=== PATIENT | male | born 1960 | race Caucasian/White ===

== ENCOUNTER 2016-06-19 22:38 | Inpatient (IN) | payer BC ==
[~2016-06-19] VITALS: Ht 167.6 cm; Wt 87.0 kg
[~2016-06-19 22:38] MED LIST: ONDA4TAB7 SL
[2016-06-19] MEDS ORDERED: ONDANSETRON INJ 2 MG/ML 2 ML VIAL IV STA (22:53)
[2016-06-19] MEDS ORDERED: MoRPHine SULFATE 4 MG/ML 1 ML CARP\\VIAL IV STA (22:53)
[2016-06-19] MEDS ORDERED: SODIUM CHLORIDE 0.9% 1000ML 1,000 ML IV STA (22:53)
[2016-06-19 23:18] LABS: BASO % 0.5 %; BASO ABS # 0.05 K/uL (0-0.2); COMPLETE YES; HEMATOCRIT 43.4 % (42-52); IG% 0.2 %; LYMPH % 16.5 %; MEAN CELL VOLUME 85.6 fL (80-100); MEAN CORPUSCULAR HEMOGLOBIN 30.4 pg (25-34); MEAN CORPUSCULAR HGB CONC 35.5 g/dl (32-36); MEAN PLATELET VOLUME 10.3 fL (7.4-10.4); MONO % 11.3 %; NEUT % 70.5 %; PLATELET COUNT 157 K/uL (130-400); RED BLOOD COUNT 5.07 M/uL (4.7-6.1); WHITE BLOOD COUNT 9.68 K/uL (4.8-10.8)
[2016-06-19 23:39] LABS: ALT/SGPT 34 U/L (12-78); AST/SGOT 10 U/L (15-37); BLOOD UREA NITROGEN 22 mg/dl (7-18); BUN/CREATININE RATIO 18.3 (10-20); CALCIUM 8.3 mg/dl (8.5-10.1); CARBON DIOXIDE 25 mmol/L (21-32); CHLORIDE 104 mmol/L (98-107); GLUCOSE 111 mg/dl (70-99); POTASSIUM 3.6 mmol/L (3.5-5.1); SODIUM 144 mmol/L (136-145)
[2016-06-19 23:44] LABS: ALKALINE PHOSPHATASE 76 U/L (45-117)
[2016-06-20] VITALS (10 sets, daily range): BP systolic 106–143; BP diastolic 58–85; PULSE 77–100; TEMP 36.6–37.1; O2SAT 93–95; Ht 167.6 cm; Wt 87.0 kg
[2016-06-20] MEDS ORDERED: CEFOXITIN SOD 2 GM VIAL IV STA (00:29)
[2016-06-20] MEDS ORDERED: HYDROmorphone INJ 1 MG/ML SYR IV STA (00:33)
[2016-06-20] MEDS ORDERED: HYDROmorphone INJ 0.5 MG/0.5 ML SYR IV PRN (00:45)
[2016-06-20] MEDS ORDERED: ONDANSETRON INJ 2 MG/ML 2 ML VIAL IV PRN ×2 (00:45→11:15)
[2016-06-20] MEDS ORDERED: HYDROmorphone INJ 1 MG/ML SYR IV PRN ×2 (00:45→11:15)
[2016-06-20] MEDS ORDERED: PROMETHAZINE HCL INJ 25 MG in SODIUM CHLORIDE 0.9% 50ML 50 ML IV PRN (00:45)
--- NOTE | 2016-06-20 01:01 | History and Physical ---
History & Physical Date & Time of Service: Jun 20, 2016 at 00:56 Chief Complaint: Severe Abdominal Pain, Upper Abd, Fever Primary Care Physician: Chepe Luna M.D. History of Present Illness Source: patient pt adm from ER with 3-4 days of persistent abd pain, nausea. Has had episodes like this before- u/s shows thickened gb consistent with acute cholecystitis Past Medical/Surgical History Medical Problems: (1) Kidney stones Status: Resolved Social History Smoking Status: Never Smoker Immunizations History of Tetanus Vaccine?: Unknown History of Pneumococcal: Unknown History of Hepatitis B Vaccine: Unknown Multi-Drug Resistant Organisms History of MDRO: No Allergies Coded Allergies: Meperidine (Unverified Adverse Reaction, Intermediate, vomit, 06/19/16) Home Medications No Active Prescriptions or Reported Meds Review of Systems Constitutional: No chills, No fever ENT: No hearing loss Respiratory: No cough, No shortness of breath, No sputum Cardiovascular: No chest pain Abdomen: + nausea, + pain Musculoskeletal: No joint pain Genitourinary - Male: No dysuria (h/o kidney stones) Neurologic: No weakness Endocrine: No fatigue Integumentary: No rash Physical Exam Vital Signs Date Time Temp Pulse Resp B/P Pulse Ox O2 Delivery O2 Flow Rate FiO2 06/20/16 00:06 94 16 162/95 96 Room Air 06/19/16 23:07 95 Room Air 06/19/16 23:06 95 Room Air 06/19/16 23:04 95 06/19/16 22:40 36.7 90 22 165/89 100 Room Air General Appearance: no apparent distress Eyes: sclerae normal Neck: supple Respiratory/Chest: no respiratory distress Cardiovascular: regular rate, rhythm Abdomen/GI: normal bowel sounds, soft, + tenderness (RUQ tenderness) Extremities/Musculoskelatal: normal inspection, no pedal edema Neurologic/Psych: alert Skin: no rash Diagnostics Laboratory Results Results Past 24 Hours Test 06/19/16 23:01 Range/Units White Blood Count 9.68 4.8-10.8 K/uL Red Blood Count 5.07 4.7-6.1 M/uL Hemoglobin 15.4 14.0-18.0 g/dL Hematocrit 43.4 42-52 % Mean Corpuscular Volume 85.6 80-100 fL Mean Corpuscular Hemoglobin 30.4 25-34 pg Mean Corpuscular Hemoglobin Concent 35.5 32-36 g/dl Platelet Count 157 130-400 K/uL Mean Platelet Volume 10.3 7.4-10.4 fL Neutrophils (%) (Auto) 70.5 % Lymphocytes (%) (Auto) 16.5 % Monocytes (%) (Auto) 11.3 % Eosinophils (%) (Auto) 1.0 % Basophils (%) (Auto) 0.5 % Neutrophils # (Auto) 6.82 1.4-6.5 K/uL Lymphocytes # (Auto) 1.60 1.2-3.4 K/uL Monocytes # (Auto) 1.09 0.11-0.59 K/uL Eosinophils # (Auto) 0.10 0-0.5 K/uL Basophils # (Auto) 0.05 0-0.2 K/uL RDW Standard Deviation 43.1 36.4-46.3 fL RDW Coefficient of Variation 14.0 11.5-14.5 % Immature Granulocyte % (Auto) 0.2 % Immature Granulocyte # (Auto) 0.02 0.00-0.02 K/uL Sodium Level 144 136-145 mmol/L Potassium Level 3.6 3.5-5.1 mmol/L Chloride Level 104 98-107 mmol/L Carbon Dioxide Level 25 21-32 mmol/L Anion Gap 15.0 3-11 mmol/L Blood Urea Nitrogen 22 7-18 mg/dl Creatinine 1.20 0.60-1.40 mg/dl Est Creatinine Clear Calc Drug Dose 71.9 ml/min Estimated GFR () 78.4 Estimated GFR (Non- 67.7 BUN/Creatinine Ratio 18.3 10-20 Random Glucose 111 70-99 mg/dl Calcium Level 8.3 8.5-10.1 mg/dl Total Bilirubin 0.7 0.2-1 mg/dl Direct Bilirubin 0.2 0-0.2 mg/dl Aspartate Amino Transf (AST/SGOT) 10 15-37 U/L Alanine Aminotransferase (ALT/SGPT) 34 12-78 U/L Alkaline Phosphatase 76 45-117 U/L Troponin I < 0.015 0-0.045 ng/ml Total Protein 7.0 6.4-8.2 gm/dl Albumin 3.7 3.4-5.0 gm/dl Lipase 141 73-393 U/L Impression Assessment and Plan pt adm with acute cholecystitis- for lap leslie in next 24-48 hrs VTE Prophylaxis VTE Risk Assessment Done? Y/N: Yes Risk Level: Moderate
--- NOTE | 2016-06-20 01:26 | EMERGENCY ROOM VISIT NOTE ---
History First contact with patient: 22:46 Chief Complaint: ABDOMINAL PAIN Stated Complaint: SEVERE ABDOMINAL PAIN, UPPER ABD, FEVER History of Present Illness The patient is a 56 year old male who presents to the Emergency Room with complaints of severe epigastric right upper quadrant pain for the past few hours that was worse after eating dinner which was chicken. Patient discussed pain as severe, 9 out of 10. Nothing makes it better or worse. Patient denies chest pain, dyspnea, cough, congestion, vomiting, diarrhea, back pain, radiating pain, leg pain or swelling. He has had normal bowel movements. Status post appendectomy. Patient states he is healthy and has no active medical problems. Review of Systems See HPI for pertinent positives & negatives. A total of 10 systems reviewed and were otherwise negative. Past Medical/Surgical History Medical Problems: (1) Acute cholecystitis (2) Kidney stones Hernia, appendectomy Social History Smoking Status: Never Smoker Smokeless Tobacco Use: No Drug Use: none Housing Status: lives with family Occupation Status: employed Current/Historical Medications No Active Prescriptions or Reported Meds Allergies Coded Allergies: Meperidine (Unverified Adverse Reaction, Intermediate, vomit, 06/19/16) Physical Exam Vital Signs Date Time Temp Pulse Resp B/P Pulse Ox O2 Delivery O2 Flow Rate FiO2 06/20/16 00:06 94 16 162/95 96 Room Air 06/19/16 23:07 95 Room Air 06/19/16 23:06 95 Room Air 06/19/16 23:04 95 06/19/16 22:40 36.7 90 22 165/89 100 Room Air Physical Exam VITALS: Vitals are noted on the nurse's note and reviewed by myself. Vital signs stable. GENERAL: Pleasant male in obvious pain, nondiaphoretic, well-developed well- nourished. SKIN: The skin was without rashes, erythema, edema, or bruising. There is no tenting of the skin. Capillary reflex less than 2 seconds. HEAD: Normocephalic atraumatic. EARS: External auditory canals clear, tympanic membranes pearly amaral without erythema or effusion bilaterally. EYES: Pupils equal round and reactive to light and accommodation. Conjunctivae without injection, sclerae without icterus. Extraocular movements intact. NOSE: Patent, turbinates without inflammation or discharge. MOUTH: Mucous membranes mildly dry. Pharynx without erythema or exudate. Uvula midline. Airway patent. Tongue does not deviate. NECK: Supple without nuchal rigidity. No lymphadenopathy. No thyromegaly. Cervical spine is nontender. No JVD. HEART: Regular rate and rhythm without murmurs gallops or rubs. LUNGS: Clear to auscultation bilaterally without wheezes, rales or rhonchi. No dullness to percussion. No retractions or accessory muscle use. ABDOMEN: Positive bowel sounds x 4. Normal tympanic percussion. Soft, tender to palpation upper abdomen, without masses or organomegaly. No CVA tenderness. No guarding or rebound tenderness. MUSCULOSKELETAL: No muscle atrophy, erythema, or edema noted. NEURO: Patient was alert and oriented to person place and time. Normal sensation to light and sharp touch. No focal neurological deficits. Medical Decision & Procedures Laboratory Results 06/19/16 23:01 Red Blood Count 5.07, Mean Corpuscular Volume 85.6, Mean Corpuscular Hemoglobin 30.4, Mean Corpuscular Hemoglobin Concent 35.5, Mean Platelet Volume 10.3, Neutrophils (%) (Auto) 70.5, Lymphocytes (%) (Auto) 16.5, Monocytes (%) (Auto) 11.3, Eosinophils (%) (Auto) 1.0, Basophils (%) (Auto) 0.5, Neutrophils # (Auto ) 6.82, Lymphocytes # (Auto) 1.60, Monocytes # (Auto) 1.09, Eosinophils # (Auto ) 0.10, Basophils # (Auto) 0.05 06/19/16 23:01 Test 06/19/16 23:01 White Blood Count 9.68 K/uL (4.8-10.8) Red Blood Count 5.07 M/uL (4.7-6.1) Hemoglobin 15.4 g/dL (14.0-18.0) Hematocrit 43.4 % (42-52) Mean Corpuscular Volume 85.6 fL (80-100) Mean Corpuscular Hemoglobin 30.4 pg (25-34) Mean Corpuscular Hemoglobin Concent 35.5 g/dl (32-36) Platelet Count 157 K/uL (130-400) Mean Platelet Volume 10.3 fL (7.4-10.4) Neutrophils (%) (Auto) 70.5 % Lymphocytes (%) (Auto) 16.5 % Monocytes (%) (Auto) 11.3 % Eosinophils (%) (Auto) 1.0 % Basophils (%) (Auto) 0.5 % Neutrophils # (Auto) 6.82 K/uL (1.4-6.5) Lymphocytes # (Auto) 1.60 K/uL (1.2-3.4) Monocytes # (Auto) 1.09 K/uL (0.11-0.59) Eosinophils # (Auto) 0.10 K/uL (0-0.5) Basophils # (Auto) 0.05 K/uL (0-0.2) RDW Standard Deviation 43.1 fL (36.4-46.3) RDW Coefficient of Variation 14.0 % (11.5-14.5) Immature Granulocyte % (Auto) 0.2 % Immature Granulocyte # (Auto) 0.02 K/uL (0.00-0.02) Anion Gap 15.0 mmol/L (3-11) Est Creatinine Clear Calc Drug Dose 71.9 ml/min Estimated GFR () 78.4 Estimated GFR (Non- 67.7 BUN/Creatinine Ratio 18.3 (10-20) Calcium Level 8.3 mg/dl (8.5-10.1) Total Bilirubin 0.7 mg/dl (0.2-1) Direct Bilirubin 0.2 mg/dl (0-0.2) Aspartate Amino Transf (AST/SGOT) 10 U/L (15-37) Alanine Aminotransferase (ALT/SGPT) 34 U/L (12-78) Alkaline Phosphatase 76 U/L (45-117) Troponin I < 0.015 ng/ml (0-0.045) Total Protein 7.0 gm/dl (6.4-8.2) Albumin 3.7 gm/dl (3.4-5.0) Lipase 141 U/L (73-393) Medications Administered Medications (Trade) Dose Ordered Sig/Stanislav Route Start Time Stop Time Status Last Admin Dose Admin Morphine Sulfate (MoRPHine SULFATE INJ) 4 mg NOW STAT IV 06/19/16 22:53 06/19/16 22:55 DC 06/19/16 23:12 4 MG Ondansetron HCl 4 mg 4 mg NOW STAT IV 06/19/16 22:53 06/19/16 22:55 DC 06/19/16 23:13 4 MG Sodium Chloride (Nss 1000ml) 1,000 ml @ 125 mls/hr Q8H STAT IV 06/19/16 22:53 06/20/16 06:52 06/19/16 23:13 125 MLS/HR Cefoxitin Sodium (Mefoxin IV) 2,000 mg NOW STAT IV 06/20/16 00:29 06/20/16 00:30 DC 06/20/16 00:41 2,000 MG Hydromorphone HCl (Dilaudid Inj) 1 mg NOW STAT IV 06/20/16 00:33 06/20/16 00:34 DC 06/20/16 00:41 1 MG ED Course Prior records/ancillary studies reviewed. Triage Nursing notes reviewed. The patient's history was concerning for abdominal pain. Differential diagnosis: Etiologies such as appendicitis, diverticulitis, PUD, biliary pathology, UTI, pancreatitis, obstruction, mesenteric ischemia, aortic pathology, infections, inflammatory bowel disease, renal colic, as well as others were entertained. Physical examination findings: As above. ER treatment provided: Morphine, Zofran, Dilaudid, Mefoxin, IV fluids On reassessment the patient felt better. Diagnostics interpreted by me: ECG: Normal sinus, normal intervals, T-wave inversions in the inferior leads. Impression normal sinus rhythm with T-wave inversion inferiorly interpreted by myself The labs revealed a negative troponin. No leukocytosis. Imaging studies: Chest x-ray with no acute consolidation, free air or pneumothorax per my interpretation. Radiology read the ultrasound and concerning for acute cholecystitis. Surgery was consulted. Consultation: A consultation was placed with the surgeon, Dr. Morse. The case was discussed and diagnostics were reviewed. The patient was evaluated in the ER for further treatment. Exam and history seem consistent with acute cholecystitis. Patient was placed nothing by mouth and given Mefoxin. His pain was managed. He will be evaluated by surgery. He was admitted to the surgical service. He had no white count. Normal LFTs. By the evaluation outlined above emergent etiologies such as appendicitis, diverticulitis, PUD, UTI, pancreatitis, obstruction, mesenteric ischemia, aortic pathology, infections, inflammatory bowel disease, renal colic, as well as others were deemed relatively unlikely. The pt informed about the findings as listed above. All questions were answered and pleased with the treatment Case reviewed with my attending Medical Decision As above Impression Primary Impression: Acute cholecystitis Departure Information Dispostion Being Evaluated By Surgeon Condition POOR Prescriptions No Active Prescriptions or Reported Meds Referrals Chepe Luna M.D. (PCP) Patient Instructions My [facility]
[2016-06-20] MEDS ORDERED: PROMETHAZINE HCL INJ 12.5 MG in SODIUM CHLORIDE 0.9% 50ML 50 ML IV PRN ×2 (02:00→11:15)
[2016-06-20] MEDS: KETOROLAC TROMETHAMINE 30 MG/ML VIAL IV. SCH ×4 (02:01→19:26)
[2016-06-20] MEDS: LACTATED RINGER'S 1000ML 1,000 ML IV SCH ×3 (02:01→21:27)
[2016-06-20] MEDS: CEFOXITIN IV 1,000 MG in DEXTROSE 5% 50ML 50 ML IV SCH ×3 (05:28→21:27)
--- NOTE | 2016-06-20 05:31 | Surgery Progress Note ---
Surgery Progress Note Date of Service Jun 20, 2016. Objective Vital Signs: Date Time Temp Pulse Resp B/P Pulse Ox O2 Delivery O2 Flow Rate FiO2 06/20/16 01:40 36.6 95 16 143/85 Room Air 06/20/16 01:40 Room Air 06/20/16 01:35 36.6 95 16 143/85 94 Room Air 06/20/16 01:15 94 16 138/89 93 Room Air 06/20/16 00:06 94 16 162/95 96 Room Air 06/19/16 23:07 95 Room Air 06/19/16 23:06 95 Room Air 06/19/16 23:04 95 06/19/16 22:40 36.7 90 22 165/89 100 Room Air Laboratory Results: Results Past 24 Hours Test 06/19/16 23:01 Range/Units White Blood Count 9.68 4.8-10.8 K/uL Red Blood Count 5.07 4.7-6.1 M/uL Hemoglobin 15.4 14.0-18.0 g/dL Hematocrit 43.4 42-52 % Mean Corpuscular Volume 85.6 80-100 fL Mean Corpuscular Hemoglobin 30.4 25-34 pg Mean Corpuscular Hemoglobin Concent 35.5 32-36 g/dl Platelet Count 157 130-400 K/uL Mean Platelet Volume 10.3 7.4-10.4 fL Neutrophils (%) (Auto) 70.5 % Lymphocytes (%) (Auto) 16.5 % Monocytes (%) (Auto) 11.3 % Eosinophils (%) (Auto) 1.0 % Basophils (%) (Auto) 0.5 % Neutrophils # (Auto) 6.82 1.4-6.5 K/uL Lymphocytes # (Auto) 1.60 1.2-3.4 K/uL Monocytes # (Auto) 1.09 0.11-0.59 K/uL Eosinophils # (Auto) 0.10 0-0.5 K/uL Basophils # (Auto) 0.05 0-0.2 K/uL RDW Standard Deviation 43.1 36.4-46.3 fL RDW Coefficient of Variation 14.0 11.5-14.5 % Immature Granulocyte % (Auto) 0.2 % Immature Granulocyte # (Auto) 0.02 0.00-0.02 K/uL Sodium Level 144 136-145 mmol/L Potassium Level 3.6 3.5-5.1 mmol/L Chloride Level 104 98-107 mmol/L Carbon Dioxide Level 25 21-32 mmol/L Anion Gap 15.0 3-11 mmol/L Blood Urea Nitrogen 22 7-18 mg/dl Creatinine 1.20 0.60-1.40 mg/dl Est Creatinine Clear Calc Drug Dose 71.9 ml/min Estimated GFR () 78.4 Estimated GFR (Non- 67.7 BUN/Creatinine Ratio 18.3 10-20 Random Glucose 111 70-99 mg/dl Calcium Level 8.3 8.5-10.1 mg/dl Total Bilirubin 0.7 0.2-1 mg/dl Direct Bilirubin 0.2 0-0.2 mg/dl Aspartate Amino Transf (AST/SGOT) 10 15-37 U/L Alanine Aminotransferase (ALT/SGPT) 34 12-78 U/L Alkaline Phosphatase 76 45-117 U/L Troponin I < 0.015 0-0.045 ng/ml Total Protein 7.0 6.4-8.2 gm/dl Albumin 3.7 3.4-5.0 gm/dl Lipase 141 73-393 U/L Assessment & Plan 06/20/16- pt is for OR later today- for lap leslie cont current atbx
--- NOTE | 2016-06-20 06:38 | DIAGNOSTIC IMAGING REPORT ---
BILIARY ULTRASOUND CLINICAL HISTORY: Right upper quadrant abdominal pain COMPARISON STUDY: CT scan dated 04/05/2014 FINDINGS: The liver is of increased echogenicity, suspicious for hepatic steatosis. There is no right-sided hydronephrosis. There is a 14 mm calculus within the gallbladder neck. There is gallbladder wall thickening (6 mm). There is echogenic bile within the gallbladder. The pancreas is not well visualized. The common bile duct measures 6 mm. IMPRESSION: 14 mm calculus within the gallbladder neck. Hyperdense bile within the gallbladder with gallbladder wall thickening/edema. Given history of right upper quadrant abdominal pain, the findings must be viewed as suspicious for acute cholecystitis. A nuclear medicine hepatobiliary study could be obtained in follow-up as deemed clinically necessary. Electronically signed by: Cuauhtemoc Saldaña M.D. 06/20/2016 6:37 AM Dictated Date/Time: 06/20/2016 6:34 AM
--- NOTE | 2016-06-20 06:47 | DIAGNOSTIC IMAGING REPORT ---
CHEST ONE VIEW PORTABLE CLINICAL HISTORY: Atypical chest and abdominal pain. Fever. COMPARISON STUDY: No previous studies for comparison. FINDINGS: The cardiac and mediastinal contours are normal. There is no evidence of focal pulmonary consolidation. There is no evidence of failure. No pleural effusions are visualized.[ No free air is visualized. IMPRESSION: No active disease in the chest. Electronically signed by: Cuauhtemoc Saldaña M.D. 06/20/2016 6:46 AM Dictated Date/Time: 06/20/2016 6:45 AM
[2016-06-20] MEDS ORDERED: BUPIVACAINE 0.5 % 5 MG/1 ML MPF 30ML VIAL ONE (07:19)
[2016-06-20] MEDS ORDERED: INFLUENZA ADMINISTRATION CHARGE ONE (08:30)
[2016-06-20] MEDS ORDERED: INFLUENZA VIRUS QUAD VACCINE 0.5 ML SYR IM. ONE (08:30)
[2016-06-20] MEDS ORDERED: NEOSTIGMINE METHYLSULFATE 5 MG/5 ML SYR ONE (09:45)
[2016-06-20] MEDS ORDERED: MIDAZOLAM HCL 1 MG/ML 2ML VIAL ONE (09:45)
[2016-06-20] MEDS ORDERED: LIDOCAINE HCL 2% 2 ML VIAL (20MG/ML) ONE (09:45)
[2016-06-20] MEDS ORDERED: FENTANYL CITRATE INJ 50 MCG/1 ML 2 ML VIAL ONE (09:45)
[2016-06-20] MEDS ORDERED: ROCURONIUM BROMIDE 10 MG/ML 5 ML VIAL ONE (09:45)
[2016-06-20] MEDS ORDERED: PROPOFOL IV EMULSION 10 MG/ML 20 ML VIAL IV ONE (09:45)
[2016-06-20] MEDS ORDERED: ONDANSETRON INJ 2 MG/ML 2 ML VIAL ONE (09:45)
[2016-06-20] MEDS ORDERED: DEXAMETHASONE SOD INJ 4 MG/ML VIAL ONE (09:45)
[2016-06-20] MEDS ORDERED: GLYCOPYRROLATE INJ 0.2 MG/ML VIAL ONE (09:45)
[2016-06-20] MEDS ORDERED: SUCCINYLCHOLINE CHLORIDE 20 MG/ML 10 ML VIAL IV ONE (10:39)
[2016-06-20] MEDS ORDERED: SUCCINYLCHOLINE 100MG/5ML SYR IV ONE (10:39)
[2016-06-20] MEDS ORDERED: BUPIVACAINE 0.5% INJ INJ ONE (11:11)
[2016-06-20] MEDS ORDERED: ATROPINE SULFATE 0.1 MG/ML 5ML SYR IV PRN (11:15)
[2016-06-20] MEDS ORDERED: FLUMAZENIL 0.1 MG/1 ML 10 ML VIAL IV PRN (11:15)
[2016-06-20] MEDS ORDERED: EpHEDrine SULFATE INJ 50 MG/ML AMP IV PRN (11:15)
[2016-06-20] MEDS ORDERED: LABETALOL HCL IV 5 MG/ML 20ML IV PRN (11:15)
[2016-06-20] MEDS ORDERED: NALOXONE HCL 0.4 MG/1 ML VIAL/CARP IV PRN (11:15)
--- NOTE | 2016-06-20 11:24 | [facility] Post Operative Brief Note ---
Immediate Operative Summary Operative Date Jun 20, 2016. Pre-Operative Diagnosis acute cholecystitis Post-Operative Diagnosis same Procedure(s) Performed Laparoscopic Cholecystectomy Surgeon Dr Morse Hand Ii Cutter Surgeon(s) Arpan Calabrese PA-C Estimated Blood Loss 30ml Findings severe necrotizing cholecystitis Specimens A. Gallbladder Drains # 15 [address] LARRY Anesthesia gen Complication(s) None Disposition Recovery Room / PACU
[2016-06-20] MEDS ORDERED: HYDROCODONE/ACETAMOPHEN 5/325MG TAB PO PRN ×2 (11:30)
--- NOTE | 2016-06-20 11:50 | OPERATIVE REPORT ---
DATE OF OPERATION: 06/20/2016 NAME OF OPERATION: Laparoscopic cholecystectomy. PREOPERATIVE DIAGNOSIS: Acute cholecystitis. POSTOPERATIVE DIAGNOSIS: Same with acute necrotizing cholecystitis. STAFF SURGEON: Dr. Morse. AREA SECRETARY: DOLORES Tenorio. PROCEDURE: The patient was brought into the operating room and placed on the operating table in a supine position. His abdomen was prepped and draped in usual fashion. Pneumatic stockings and orogastric tube were placed. Incision was made above the umbilicus, carrying dissection down using 0.5% plain Marcaine to anesthetize all incisions. A Veress needle was placed. Pneumoperitoneum produced. An 11 mm port placed at the umbilicus. Then under visualization, three 5 mm ports placed, 1 cephalad and 2 laterally. The patient's gallbladder was very distended and edematous. There were patches consistent with necrotizing cholecystitis. There were adhesions to the gallbladder, which were acute. These were taken down. The gallbladder was aspirated. There was sludge within the gallbladder. Dissection was carried out at the dc hepatis, identifying edematous tissue. The cystic duct and cystic artery were identified, clipped and transected. Then the gallbladder dissected away from the liver bed. There was severe edema in the posterior wall. After appropriate hemostasis and irrigation a #15 round Reagan-De La Torre drain was placed through the lateral 5 mm port site, placed into the subhepatic space, secured to the skin using 3-0 nylon suture. The gallbladder was then removed through the umbilical site, having to enlarge the incision secondary to the size of the gallbladder, it was very large. At this point, the fascia at the umbilicus closed using interrupted 0 PDS suture, and then the skin reapproximated using 4-0 nylon suture. The patient was transferred to recovery room in stable condition. I attest to the content of the Intraoperative Record and any orders documented therein. Any exceptio ns are noted below.
--- NOTE | 2016-06-20 12:05 | Anesthesiology Progress Note ---
Anesthesia Post Op Note Date & Time Jun 20, 2016 at 12:06 Vital Signs Pain Intensity: 0 Vital Signs Past 12 Hours Date Time Temp Pulse Resp B/P Pulse Ox O2 Delivery O2 Flow Rate FiO2 06/20/16 11:45 37.2 86 18 118/69 97 Mask 10 06/20/16 11:36 37.2 86 14 115/78 98 Mask 10 06/20/16 09:01 36.8 93 18 146/92 97 Room Air 06/20/16 07:51 36.8 92 16 124/83 94 Room Air 06/20/16 07:25 Room Air 06/20/16 01:40 36.6 95 16 143/85 Room Air 06/20/16 01:40 Room Air 06/20/16 01:35 36.6 95 16 143/85 94 Room Air 06/20/16 01:15 94 16 138/89 93 Room Air Notes Mental Status: alert / awake / arousable, participated in evaluation Pt Amnestic to Procedure: Yes Nausea / Vomiting: adequately controlled Pain: adequately controlled Airway Patency, RR, SpO2: stable & adequate BP & HR: stable & adequate Hydration State: stable & adequate Anesthetic Complications: no major complications apparent
--- NOTE | 2016-06-20 14:44 | Progress Note ---
Progress Note Date of Service Jun 20, 2016. Progress Note consult dictated [id number]
--- NOTE | 2016-06-20 15:41 | INTERNAL MEDICINE CONSULTATION ---
DATE OF ADMISSION: 06/20/2016 This is a level 2 inpatient consultation H\T\P, 25 minutes. PHYSICIAN REQUESTING CONSULTATION: Dr. Morse. REASON FOR CONSULTATION: Medicine management. HISTORY OF PRESENT ILLNESS: This 56-year-old white male with a history of kidney stone, was admitted to Dr. Morse's service because of acute cholecystitis. The patient had a laparoscopic cholecystectomy done this morning. He tolerated well. When I examined him, he was awake, alert and oriented. He is on oxygen 2 liters per minute. He reported to me he does not need oxygen at home. He is feeling good. Denied fever or chills. Denied cough, sputum, shortness of breath. Denied palpitations, lower extremity swelling. Denied chest pain. Denied nausea, vomiting, abdominal pain, diarrhea, or constipation. Denied dysuria, urgency and frequencies. Denied facial droop, slurry speeches or local weakness. ALLERGIES: MEPERIDINE. PAST SURGICAL HISTORY: Include appendectomy. SOCIAL HISTORY: Chewing tobacco 1-1/2 can per day. FAMILY HISTORY: His mother is diabetic. Father of pancreatic cancer. REVIEW OF SYSTEMS: Please see HPI, otherwise 14 points organ system review were negative. MEDICATIONS: Prior to admission, which includes medications taking at home. PHYSICAL EXAMINATION: VITAL SIGNS: Temperature 37.1, pulse 93, respiration rate 16, blood pressure 118/68, pulse ox was 95% on room air. GENERAL: The patient is a white male, awake, alert and oriented, pleasant, conversational, follows all commands. HEAD: Normocephalic. EYES: Pupils equal, round responds to light. EARS: Ear was normal. NOSE: Normal. NECK: Supple. Thyroid no enlargement. Trachea midline. Obesity. HEART: Regular rhythm. S1, S2. LUNGS: Decreased breathing sounds. There was no wheezing, rhonchi or crackles. ABDOMEN: Mild tender in right upper quadrants. Bowel sound was negative. EXTREMITIES: Bilateral CVA was nontender. GENITOURINARY: Deferred. RECTAL: Deferred. NEUROLOGICAL EVALUATION: Cranial nerves II through XII was intact. There was no focal deficits. SKIN: Has no rashes. LABORATORY STUDIES: WBC 9, hemoglobin 15, platelet 157,000. BMP: Sodium 144, potassium 3.6, BUN 25, creatinine 1.2. Blood glucose 110. Liver function tests were within normal limits. IMAGING STUDIES: In the emergency room yesterday chest x-ray no acute disease. Gallbladder ultrasound was done which shows a 14 mm calculus within the gallbladder neck, hyperdensities within the gallbladder with gallbladder wall thickening and edema. Suspicious acute cholecystitis. ASSESSMENT AND PLAN: A 56-year-old white male with the problems below: 1. Acute cholecystitis status post laparoscopic cholecystectomy. This condition and pain control and deep vein thrombosis prophylaxis and discharge plan will be per primary team. 2. Chewing tobacco. I offered help for chewing tobacco such as nicotine patch. The patient declined. 3. Transient hypoxic after procedure, currently is on nasal cannula 2 liters per minute. I have counseled the patient to try as much as possible off the incentive spirometries and deep breathing as much as possible. Thank you for the chance to involve in the care of your patient. We will continue to follow up when patient in the hospital. SINDHU
[2016-06-20] MEDS: DOCUSATE SODIUM/SENNA 50/8.6MG TAB PO SCH (20:55)
[2016-06-21] MEDS: KETOROLAC TROMETHAMINE 30 MG/ML VIAL IV. SCH ×4 (02:04→20:01)
[2016-06-21 03:43] VITALS: BP 112/58; PULSE 84; TEMP 36.6; O2SAT 96
[2016-06-21] MEDS: CEFOXITIN IV 1,000 MG in DEXTROSE 5% 50ML 50 ML IV SCH ×3 (05:40→21:39)
[2016-06-21 06:41] LABS: MEAN CELL VOLUME 82.9 fL (80-100); MEAN CORPUSCULAR HEMOGLOBIN 29.4 pg (25-34); MEAN CORPUSCULAR HGB CONC 35.4 g/dl (32-36); MEAN PLATELET VOLUME 10.4 fL (7.4-10.4); PLATELET COUNT 139 K/uL (130-400); RED BLOOD COUNT 4.22 M/uL (4.7-6.1); WHITE BLOOD COUNT 8.19 K/uL (4.8-10.8)
[2016-06-21 07:00] LABS: BUN/CREATININE RATIO 15.8 (10-20); CREATININE 0.99 mg/dl (0.60-1.40); POTASSIUM 4.1 mmol/L (3.5-5.1)
[2016-06-21 07:01] LABS: ALB/GLOB RATIO 0.8 (0.9-2)
--- NOTE | 2016-06-21 07:11 | Surgery Progress Note ---
Surgery Progress Note Date of Service Jun 21, 2016. Subjective Post OP Day: 1 + feeling well, + flatus, No nausea, No vomiting drain- serosang Objective Vital Signs: Date Time Temp Pulse Resp B/P Pulse Ox O2 Delivery O2 Flow Rate FiO2 06/21/16 03:43 36.6 84 15 112/58 96 Room Air 06/21/16 00:20 Room Air 06/20/16 23:16 36.8 77 16 110/68 93 Room Air 06/20/16 18:39 36.9 88 18 129/67 93 Room Air 06/20/16 15:52 37.1 86 16 113/58 94 Nasal Cannula 2.0 06/20/16 15:30 Nasal Cannula 2.0 06/20/16 14:57 92 16 106/67 95 Nasal Cannula 2.0 06/20/16 13:45 93 16 118/68 95 Nasal Cannula 2.0 06/20/16 13:15 86 16 115/73 95 Room Air 06/20/16 12:45 37.1 100 16 118/74 95 Nasal Cannula 2.0 06/20/16 12:45 95 Nasal Cannula 2.0 06/20/16 12:15 37.2 91 18 106/72 96 Nasal Cannula 2 06/20/16 12:05 36.8 89 18 111/67 95 Nasal Cannula 2 06/20/16 11:55 86 18 108/74 97 Nasal Cannula 2 06/20/16 11:45 37.2 86 18 118/69 97 Mask 10 06/20/16 11:36 37.2 86 14 115/78 98 Mask 10 06/20/16 09:01 36.8 93 18 146/92 97 Room Air 06/20/16 07:51 36.8 92 16 124/83 94 Room Air 06/20/16 07:25 Room Air General Appearance: no apparent distress Respiratory/Chest: no respiratory distress Abdomen: soft Incision(s): intact Laboratory Results: Results Past 24 Hours Test 06/21/16 06:00 Range/Units White Blood Count 8.19 4.8-10.8 K/uL Red Blood Count 4.22 4.7-6.1 M/uL Hemoglobin 12.4 14.0-18.0 g/dL Hematocrit 35.0 42-52 % Mean Corpuscular Volume 82.9 80-100 fL Mean Corpuscular Hemoglobin 29.4 25-34 pg Mean Corpuscular Hemoglobin Concent 35.4 32-36 g/dl RDW Standard Deviation 40.7 36.4-46.3 fL RDW Coefficient of Variation 13.5 11.5-14.5 % Platelet Count 139 130-400 K/uL Mean Platelet Volume 10.4 7.4-10.4 fL Sodium Level 142 136-145 mmol/L Potassium Level 4.1 3.5-5.1 mmol/L Chloride Level 110 98-107 mmol/L Carbon Dioxide Level 21 21-32 mmol/L Anion Gap 11.0 3-11 mmol/L Blood Urea Nitrogen 16 7-18 mg/dl Creatinine 0.99 0.60-1.40 mg/dl Est Creatinine Clear Calc Drug Dose 87.1 ml/min Estimated GFR () 99.0 Estimated GFR (Non- 85.4 BUN/Creatinine Ratio 15.8 10-20 Random Glucose 104 70-99 mg/dl Calcium Level 8.0 8.5-10.1 mg/dl Total Bilirubin 0.4 0.2-1 mg/dl Direct Bilirubin 0.1 0-0.2 mg/dl Aspartate Amino Transf (AST/SGOT) 42 15-37 U/L Alanine Aminotransferase (ALT/SGPT) 79 12-78 U/L Alkaline Phosphatase 66 45-117 U/L Total Protein 5.9 6.4-8.2 gm/dl Albumin 2.7 3.4-5.0 gm/dl Globulin 3.2 2.5-4.0 gm/dl Albumin/Globulin Ratio 0.8 0.9-2 Assessment & Plan 06/21/16- s/p lap leslie- necrotizing cholecystitis- adv diet, cont atbx and as outpt. plan d/c tomorrow 06/20/16- pt is for OR later today- for lap leslie cont current atbx 06/20/16- pt is for OR later today- for lap leslie cont current atbx
[2016-06-21] MEDS ORDERED: AMOX875T PO (07:13)
[2016-06-21] MEDS ORDERED: HYDR-5688 PO (07:13)
--- NOTE | 2016-06-21 07:16 | Discharge Instructions ---
Discharge Instructions Admission Reason for Admission: Acute Cholecystitis Discharge Discharge Diagnosis / Problem: acute necrotizing cholecystitis Discharge Goals Goal(s): Decrease discomfort, Improve function, Improve disease control Activity Recommendations Activity Limitations: as noted below Lifting Limitations: no more than 25 pounds Exercise/Sports Limitations: until after follow-up appointment May Resume Sexual Activity: when tolerated Shower/Bathe: tomorrow Driving or Machine Use: resume 3 days after discharge . Instructions / Follow-Up Instructions / Follow-Up SPECIAL CARE INSTRUCTIONS: * Cover incisions and change daily for comfort/drainage. * Empty drain 2-3 times per day and record. * Avoid constipation- may use Senokot S and Milk of magnesia twice daily as directed on the package * May use ibuprofen for pain as tolerated. * Expect some swelling and bruising. Call your doctor if: * Temperature above 101 degrees * Pain not relieved by pain medicine ordered * There is increased drainage or redness from any incision * You have any unanswered questions or concerns [phone]. FOLLOW UP VISIT: If not already scheduled, please call the office for a follow-up visit. for next Sun or Sun- drain removal, and some sutures OFFICE PHONE NUMBER: Dr. Morse Office Current Hospital Diet Patient's current hospital diet: Regular Diet Discharge Diet Recommended Diet: Regular Diet Procedures Procedures Performed: Laparoscopic Cholecystectomy Pending Studies Studies pending at discharge: no Medical Emergencies . Who to Call and When: Medical Emergencies: If at any time you feel your situation is an emergency, please call 911 immediately. . Non-Emergent Contact Non-Emergency issues call your: Primary Care Provider, Surgeon . "Provider Documentation" section prepared by Flavio Morse. VTE Core Measure Inpt VTE Proph given/why not?: Enoxaparin (Lovenox)SQ, SCD's
--- NOTE | 2016-06-21 07:33 | Anesthesiology Progress Note ---
Anesthesia Post Op Note Date & Time Jun 21, 2016 at 07:33 Vital Signs Pain Intensity: 0.0 Vital Signs Past 12 Hours Date Time Temp Pulse Resp B/P Pulse Ox O2 Delivery O2 Flow Rate FiO2 06/21/16 03:43 36.6 84 15 112/58 96 Room Air 06/21/16 00:20 Room Air 06/20/16 23:16 36.8 77 16 110/68 93 Room Air Notes Mental Status: alert / awake / arousable, participated in evaluation Pt Amnestic to Procedure: Yes Nausea / Vomiting: adequately controlled Pain: adequately controlled Airway Patency, RR, SpO2: stable & adequate BP & HR: stable & adequate Hydration State: stable & adequate Anesthetic Complications: no major complications apparent
[2016-06-21 07:41] VITALS: BP 111/63; PULSE 80; TEMP 36.4; O2SAT 96
[2016-06-21] MEDS: DOCUSATE SODIUM/SENNA 50/8.6MG TAB PO SCH ×2 (07:46→21:39)
[2016-06-21 08:36] VITALS: O2SAT 96
--- NOTE | 2016-06-21 10:07 | Progress Note ---
Subjective Date of Service: Jun 21, 2016. Subjective Pt evaluation today including: conversation w/ patient, physical exam, chart review, lab review, review of studies, conversation w/ client care consultant, review of inpatient medication list Doing well, tolerate diet, no fever and chill, no abdominal pain Review of Systems Constitutional: No chills, No fatigue, No fever, No problem reported, No sweats , No weakness, No weight loss Eyes: No diplopia, No discharge, No eye pain, No redness, No worsening of vision ENT: No dental problems, No hearing loss, No nasal symptoms, No sore throat, No tinnitus, No trouble swallowing, No unusual epistaxis Respiratory: No cough, No dyspnea at rest, No dyspnea on exertion, No hemoptysis, No shortness of breath, No sputum, No wheezing Cardiac: No PND, No chest pain, No claudication, No edema, No orthopnea, No palpitations Abdomen: No constipation, No diarrhea, No nausea, No pain, No vomiting Musculoskeletal: No calf pain, No joint pain, No muscle pain, No swelling Male : No dysuria, No hematuria, No incontinence, No nocturia more than once/ night, No slowing stream, No urinary frequency Neurologic: No balance problems, No memory loss, No numbness/tingling, No paralysis, No vertigo, No weakness Psychiatric: No anhedonism, No anxiety, No depression symptoms, No insomnia, No substance abuse Heme: No abnormal bleeding/bruising, No clotting problems, No night sweats, No swollen lymph nodes Endo: No excessive thirst, No excessive urination, No fatigue Skin: No bleeding, No color change, No itch, No new/changing skin lesions, No rash Objective Vital Signs Date Time Temp Pulse Resp B/P Pulse Ox O2 Delivery O2 Flow Rate FiO2 06/21/16 08:36 96 Room Air 06/21/16 07:41 36.4 80 20 111/63 96 Room Air 06/21/16 07:25 Room Air 06/21/16 03:43 36.6 84 15 112/58 96 Room Air 06/21/16 00:20 Room Air 06/20/16 23:16 36.8 77 16 110/68 93 Room Air 06/20/16 18:39 36.9 88 18 129/67 93 Room Air 06/20/16 15:52 37.1 86 16 113/58 94 Nasal Cannula 2.0 06/20/16 15:30 Nasal Cannula 2.0 06/20/16 14:57 92 16 106/67 95 Nasal Cannula 2.0 06/20/16 13:45 93 16 118/68 95 Nasal Cannula 2.0 06/20/16 13:15 86 16 115/73 95 Room Air 06/20/16 12:45 37.1 100 16 118/74 95 Nasal Cannula 2.0 06/20/16 12:45 95 Nasal Cannula 2.0 06/20/16 12:15 37.2 91 18 106/72 96 Nasal Cannula 2 06/20/16 12:05 36.8 89 18 111/67 95 Nasal Cannula 2 06/20/16 11:55 86 18 108/74 97 Nasal Cannula 2 06/20/16 11:45 37.2 86 18 118/69 97 Mask 10 06/20/16 11:36 37.2 86 14 115/78 98 Mask 10 Physical Exam General Appearance: WD/WN, no apparent distress Eyes: normal inspection, PERRL, EOMI, sclerae normal ENT: normal ENT inspection, hearing grossly normal, pharynx normal Neck: supple, no adenopathy, thyroid normal, no JVD, no carotid bruits, trachea midline Respiratory/Chest: chest non-tender, lungs clear, normal breath sounds, no respiratory distress, no accessory muscle use Cardiovascular: regular rate, rhythm, no edema, no gallop, no JVD, no murmur Abdomen: normal bowel sounds, non tender, soft, no organomegaly, no pulsatile mass Extremities: normal range of motion, non-tender, normal inspection, no pedal edema, no calf tenderness, normal capillary refill, pelvis stable Neurologic/Psychiatric: steeple jack II-XII nml as tested, no motor/sensory deficits, alert, normal mood/affect, oriented x 3 Skin: normal color, warm/dry, no rash Lymphatic: no adenopathy Laboratory Results Last 24 Hours Test 06/21/16 06:00 White Blood Count 8.19 K/uL Red Blood Count 4.22 M/uL Hemoglobin 12.4 g/dL Hematocrit 35.0 % Mean Corpuscular Volume 82.9 fL Mean Corpuscular Hemoglobin 29.4 pg Mean Corpuscular Hemoglobin Concent 35.4 g/dl RDW Standard Deviation 40.7 fL RDW Coefficient of Variation 13.5 % Platelet Count 139 K/uL Mean Platelet Volume 10.4 fL Sodium Level 142 mmol/L Potassium Level 4.1 mmol/L Chloride Level 110 mmol/L Carbon Dioxide Level 21 mmol/L Anion Gap 11.0 mmol/L Blood Urea Nitrogen 16 mg/dl Creatinine 0.99 mg/dl Est Creatinine Clear Calc Drug Dose 87.1 ml/min Estimated GFR () 99.0 Estimated GFR (Non- 85.4 BUN/Creatinine Ratio 15.8 Random Glucose 104 mg/dl Calcium Level 8.0 mg/dl Total Bilirubin 0.4 mg/dl Direct Bilirubin 0.1 mg/dl Aspartate Amino Transf (AST/SGOT) 42 U/L Alanine Aminotransferase (ALT/SGPT) 79 U/L Alkaline Phosphatase 66 U/L Total Protein 5.9 gm/dl Albumin 2.7 gm/dl Globulin 3.2 gm/dl Albumin/Globulin Ratio 0.8 Assessment and Plan A 56-year-old white male admitted to Dr. Morse surgeon service because of acute cholecystitis colitis, hospitalist consulted for medical management Acute cholecystitis status post laparoscopic cholecystectomy. Postop day 1 , doing well This condition and pain control and deep vein thrombosis prophylaxis and discharge plan will be per primary team. Chewing tobacco. I offered help for chewing tobacco such as nicotine patch. The patient declined. Transient hypoxic after procedure, was on nasal cannula 2 liters per minute. Resolved Continued [facility] stay due to: home environment unsafe for pt Discharge planning: home
[2016-06-21 12:24] VITALS: BP 120/72; PULSE 77; TEMP 36.7; O2SAT 95
[2016-06-21 15:55] VITALS: BP 103/63; PULSE 88; TEMP 36.4; O2SAT 94
[2016-06-21 23:01] VITALS: BP 118/73; PULSE 81; TEMP 36.7; O2SAT 94
[2016-06-22] MEDS: CEFOXITIN IV 1,000 MG in DEXTROSE 5% 50ML 50 ML IV SCH (05:50)
--- NOTE | 2016-06-22 06:36 | DISCHARGE SUMMARY ---
PRINCIPAL DIAGNOSIS: Acute necrotizing cholecystitis. PROCEDURE: The patient underwent laparoscopic cholecystectomy with drain placement. HISTORY OF PRESENT ILLNESS: The patient is a 56-year-old male who developed progressive abdominal pain, presenting to the Emergency Room on 06/19/2016 where he was found with evidence of acute cholecystitis. He was admitted to the hospital and on 06/20/2016 he underwent laparoscopic cholecystectomy which showed acute necrotizing cholecystitis. Drain was placed. The patient has been kept on IV antibiotics and supportive care and is felt stable for discharge home, to be followed in the surgical clinic early next week.
[2016-06-22 07:02] VITALS: BP 134/81; PULSE 81; TEMP 36.5; O2SAT 96
[2016-06-22] MEDS: DOCUSATE SODIUM/SENNA 50/8.6MG TAB PO SCH (07:52)
[2016-06-22 09:59] VITALS: BP 134/81; PULSE 81; TEMP 36.5; O2SAT 96
== END 2016-06-22 11:46 | disposition home or self-care (01) | DRG 418 ==
LOC: ENRESERVDT → ENRESERVTM → C.EDB 22:40 → C.MSN 06-20 00:45
PROVIDERS: ADMIT Surgery; ATTEND Surgery
PROC: 0FT44ZZ Resection of Gallbladder, Percutaneous Endoscopic Approach (ICD-10-PCS; principal; 2016-06-20 09:15)
DX: K80.00 Calculus of gallbladder with acute cholecystitis without obstruction (principal); J95.89 Other postprocedural complications and disorders of respiratory system, not elsewhere classified; F17.220 Nicotine dependence, chewing tobacco, uncomplicated; R09.02 Hypoxemia